=== PATIENT | female | born 1940 | race Caucasian/White ===

== ENCOUNTER 2024-05-28 07:12 | Day surgery (SDC) | payer MEDICARE, BC ==
[2024-05-27 10:13] LABS: BASOPHILS # (AUTO) 0.1 X10'3 (0-0.2); BASOPHILS % (AUTO) 1.2 % (0-1); EOSINOPHILS # (AUTO) 0.1 X10'3 (0-0.9); EOSINOPHILS % (AUTO) 1.4 % (0-6); HEMATOCRIT 39.3 % (35.0-45.0); LYMPHOCYTES % (AUTO) 25.5 % (21-51); MEAN CORPUSCULAR HGB CONC 33.1 g/dL (33.0-36.5); MEAN CORPUSCULAR VOLUME 90.7 FL (78-98); MEAN PLATELET VOLUME 6.2 FL (7.4-10.4); MONOCYTES # (AUTO) 0.5 X10'3 (0-0.9); MONOCYTES % (AUTO) 6.3 % (2-12); NEUTROPHILS # (AUTO) 5.2 X10'3 (1.8-7.7); NEUTROPHILS % (AUTO) 65.6 % (42-75); PLATELET COUNT 294 X10'3 (140-440); RED BLOOD COUNT 4.34 X10'6 (4.20-5.60); RED CELL DISTRIBUTION WIDTH 16.2 % (11.5-14.5)
[2024-05-27 10:17] LABS: ALBUMIN 3.9 G/DL (3.4-5.0); ANION GAP 9 (8-16); BLOOD UREA NITROGEN 18 MG/DL (7-18); CALCIUM 9.2 MG/DL (8.5-10.1); CHLORIDE 100 MMOL/L (99-107); CREATININE 1.06 MG/DL (0.40-0.90); GLUCOSE 96 MG/DL (70-104); INR 1.1 INR; POTASSIUM 4.1 MMOL/L (3.5-5.1); SODIUM 135 MMOL/L (135-145); TOTAL CARBON DIOXIDE 26.3 MMOL/L (24-32); eGFR 50 ML/MIN
[2024-05-28] VITALS (11 sets, daily range): BP systolic 103–169; BP diastolic 39–87; PULSE 45–99; RESP 10–12; TEMP 98.3; O2SAT 94–100
[~2024-05-28] VITALS: Ht 160 cm; Wt 62.6 kg
[2024-05-28] MEDS ORDERED: atropine 0.1mg/ml 10ml syringe IV ONE (07:25)
[2024-05-28] MEDS ORDERED: LORazepam 0.5 MG tablet PO ONE (07:25)
[2024-05-28] MEDS ORDERED: amiodarone 150mg/dext, iso-os 100 ML IV ONE (07:25)
[2024-05-28] MEDS ORDERED: diphenhydrAMINE 25mg capsule PO ONE (07:25)
[2024-05-28] MEDS ORDERED: DILT240C52 PO (07:57)
[2024-05-28] MEDS ORDERED: APIX2.5T PO (07:57)
[2024-05-28] MEDS ORDERED: PANT40TA54 PO (07:57)
[2024-05-28] MEDS ORDERED: METO-395 PO (07:57)
[2024-05-28] MEDS ORDERED: FLEC100T35 PO (07:57)
[2024-05-28] MEDS: morphine 10mg/ml inj. IV ONE (10:08)
[2024-05-28] MEDS: MIDAZolam 1mg/ml 10ml vial IV ONE (10:08)
[2024-05-28] MEDS: normal saline 1000ml 1,000 ML IV SCH (10:08)
[2024-05-28] MEDS ORDERED: FURO-150 PO (10:21)
[2024-05-28] MEDS: furosemide 20 MG/2 ML vial IV ONE (10:34)
[2024-05-28 10:51] LABS: PRO BRAIN NATRIURETIC PEPTIDE 1260 PG/ML (0-450)
[2024-05-28] MEDS ORDERED: FLEC50TA PO (10:54)
[2024-05-28] MEDS ORDERED: METO-384 PO (10:54)
== END 2024-05-28 11:35 | disposition home or self-care (01) ==
LOC: SSTAY O 07:12
PROVIDERS: ATTEND Internal Medicine Cardiovascular Disease
DX: I48.0 Paroxysmal atrial fibrillation (principal); I10 Essential (primary) hypertension; K21.9 Gastro-esophageal reflux disease without esophagitis; Z79.01 Long term (current) use of anticoagulants; Z79.899 Other long term (current) drug therapy; Z90.49 Acquired absence of other specified parts of digestive tract; Z96.652 Presence of left artificial knee joint; Z98.890 Other specified postprocedural states
CPT/HCPCS: 36415; 80048; 83880; 85025; 85610; 92960; 93005; J1940; J2250; J2270; J7030; J2274